=== PATIENT | male | born 1965 | race African-American/Black ===

== ENCOUNTER → 2016-09-23 | Outpatient (REF) ==
--- NOTE | 2016-09-23 10:42 | DI ---
EXAM: CHEST FRONTAL AND LATERAL VIEWS HISTORY: Annual routine physical screening. COMPARISON: 10/11/2015 FINDINGS: Heart size and mediastinal contour are stable and within normal limits. Lungs reveal no suspicious opacity or nodules. There is no acute infiltrate or vascular congestion. IMPRESSION: No change since previous exam.
== END ==
LOC: RAD 09:43
DX: Z02.89 Encounter for other administrative examinations (principal)